=== PATIENT | male | born 1995 | race African-American/Black ===

== ENCOUNTER 2017-05-06 21:17 | Emergency (ER) | payer OTHER ==
[~2017-05-06] VITALS: Ht 172.7 cm; Wt 70.5 kg
[2017-05-07] MEDS ORDERED: FLUORESCEIN OPHTH 1 MG STRIP OU ONE
[2017-05-07] MEDS ORDERED: NAPR500T PO (00:19)
[2017-05-07 00:25] VITALS: BP 114/67
== END 2017-05-07 00:27 | disposition home or self-care (01) ==
LOC: M ED 21:17
DX: H00.13 Chalazion right eye, unspecified eyelid (principal); H00.16 Chalazion left eye, unspecified eyelid; F17.200 Nicotine dependence, unspecified, uncomplicated

== ENCOUNTER 2018-08-09 01:17 | Emergency (ER) | payer OTHER ==
[~2018-08-09] VITALS: Ht 172.7 cm; Wt 72.7 kg
[~2018-08-09 01:17] MED LIST: NAPR-50 PO
[2018-08-09] MEDS ORDERED: ACYC200CA PO (02:28)
[2018-08-09] MEDS ORDERED: VALA1TAB2 PO (02:28)
[2018-08-09] MEDS ORDERED: valACYclovir HCL 500 MG TAB PO ONE (02:30)
[2018-08-09 02:32] VITALS: BP 128/69
== END 2018-08-09 02:42 | disposition home or self-care (01) ==
LOC: M ED 01:17
DX: B00.9 Herpesviral infection, unspecified (principal); J45.909 Unspecified asthma, uncomplicated; F32.9 Major depressive disorder, single episode, unspecified; F17.290 Nicotine dependence, other tobacco product, uncomplicated